=== PATIENT | male | born 1985 | race Two or more races ===

== ENCOUNTER 2021-02-21 19:50 | Emergency (ER) | payer SELFPAY ==
[2021-02-21] MEDS ORDERED: Ketorolac 15 MG/ML SDV IM ONE (20:14)
--- NOTE | 2021-02-21 20:57 | CR ---
INDICATION: Injury. Pain. TECHNIQUE: Three views left foot. Three views left ankle. FINDINGS: Mildly displaced minimally comminuted oblique acute fracture involving the distal diaphysis and neck of the left 2nd metacarpal. Moderate soft tissue swelling left forefoot and midfoot greatest dorsally in the forefoot. Mild hallux valgus deformity. Mild soft tissue swelling left ankle anteriorly and laterally. No acute fracture or dislocation in left ankle. Remainder negative. Dictated by Lake Harrell MD @ 02/21/2021 8:55:[address] Lake Harrell @ Feb 21 2021 8:55PM
--- NOTE | 2021-02-21 20:57 | CR ---
INDICATION: Injury. Pain. TECHNIQUE: Three views left foot. Three views left ankle. FINDINGS: Mildly displaced minimally comminuted oblique acute fracture involving the distal diaphysis and neck of the left 2nd metacarpal. Moderate soft tissue swelling left forefoot and midfoot greatest dorsally in the forefoot. Mild hallux valgus deformity. Mild soft tissue swelling left ankle anteriorly and laterally. No acute fracture or dislocation in left ankle. Remainder negative. Dictated by Lake Harrell MD @ 02/21/2021 8:55:[address] Lake Harrell @ Feb 21 2021 8:55PM
[2021-02-21] MEDS ORDERED: Diphtheria,Pertussis(Acell),Tetanus Vaccine 0.5 ML Syringe IM ONE (20:58)
--- NOTE | 2021-02-21 21:17 | EDM.PDOC ---
ED HPI GENERAL MEDICAL PROBLEM - General Chief Complaint: Lower Extremity Injury/Pain Stated Complaint: LFT FOOT BROKEN POSSIBLY Time Seen by Provider: 02/21/21 20:06 - History of Present Illness INITIAL COMMENTS - FREE TEXT/NARRATIVE: CHIEF COMPLAINT(S): Left foot injury HISTORY OF PRESENT ILLNESS: This is a 35-year-old man without any significant past medical history who comes to the emergency department with a chief compl aint of the left foot injury. The patient states that approximately 2 hours prior to arrival he and his coworker were moving a dresser and the dresser fell on top of his left foot. He states that after the dresser landed on his foot it was too painful to walk on it and they decided to come to the emergency department. He states that initially his pain was 5 out of 10 and since being here it is now 4 out of 10. He describes the pain as achy. He denies any radiation of the pain. He denies any other injuries. He states that there is no numbness, tingling, or weakness is just painful when he walks on it. He states that anytime he touches his foot it is exacerbated. He states that putting any weight on it exacerbates the pain. He denies any relieving factors. REVIEW OF SYSTEMS: Constitutional: Denies fever, chills. Cardiovascular: Denies chest pain Skin: Positive for abrasion to top of left foot MSK: Positive for left foot pain Neurological: Denies numbness, tingling, weakness PAST MEDICAL HISTORY: As per history of present illness and as reviewed below otherwise noncontributory. SURGICAL HISTORY: As per history of present illness and as reviewed below otherwise noncontributory. SOCIAL HISTORY: As per history of present illness and as reviewed below otherwise noncontributory. FAMILY HISTORY: As per history of present illness and as reviewed below otherwise noncontributory. EXAMINATION OF ORGAN SYSTEMS/BODY AREAS: Constitutional: Blood pressure is 143/78, heart rate 110, respiratory rate 18 with an oxygen saturation 97% on room air. Temperature 36.1 General: Overall well-appearing man who is in no acute distress Psychiatric: Appropriate mood and affect. Eyes: No scleral icterus or conjunctival erythema Cardiovascular: Regular, rate, and rhythm. No gallops, murmurs, or rubs. Bilateral upper extremity and lower extremity pulses symmetric and intact. Respiratory: Lungs clear to auscultation bilaterally. No wheezes, rales, or rhonchi. Musculoskeletal: The patient has full range of motion at the left ankle. There is some soft tissue swelling on the patient's top of his left foot. There is tenderness to palpation along the top of the foot entirely. No specific area. No obvious deformity. Patient can move all of his toes equally. Skin: There is an abrasion to the patient's top of his left foot Neurological: Alert, GCS 15 distal sensation is intact MEDICAL DECISION MAKING AND COURSE IN THE ED WITH INTERPRETATION/REVIEW OF DIAGNOSTIC STUDIES: This is a 35-year-old man and without any significant past medical history who comes to the emergency department with left foot injury with soft tissue swelling and tenderness on the top of the patient's left foot. At this time we will provide the patient with Toradol for pain relief. We will update the patient's tetanus. We will obtain an ankle and foot x-ray on the left and reevaluate after imaging. I do not believe any other labs or imaging are indicated. The radiological images were viewed by myself along with reading the report from the radiologist. Left ankle x-ray does not reveal any fracture or dislocation. Left foot x-ray reveals a mildly displaced minimally comminuted oblique acute fracture involving the distal diaphysis and neck of the left second metatarsal. There is moderate soft tissue swelling of the left forefoot and midfoot with a mild hallux valgus deformity. After imaging I did discuss results with the patient. I contacted [facility] in [place] and spoke with Dr. Sandhu who recommended a walking boot and nonweightbearing and follow-up with orthopedics within 1 to 3 days. I did discuss this with the patient he was amenable to this plan. He is to use Tylenol and Motrin for pain relief and to return for any new or worsening symptoms. He was amenable to discharge at this time and had no further questions DISPOSITION: The patient was discharged home in stable condition. The patient will follow up with orthopedics within 1 to 3 days CONDITION: Fair PROCEDURES: None FINAL IMPRESSION(S)/DIAGNOSES: 1. Acute minimally displaced comminuted oblique acute fracture of the distal diaphysis of the neck of the left second metatarsal DME: Left walking boot Indication: Second metatarsal fracture Benefit: Immobilization/nonweightbearing Duration: Until follow-up with orthopedics DME: Crutches Indication: Second metatarsal fracture Benefit: Nonweightbearing Duration: Until follow-up with orthopedics Lukasz Dickinson M.D. left foot Pain Score (Numeric/FACES): 5 - Related Data Allergies Allergy/AdvReac Type Severity Reaction Status Date / Time No Known Allergies Allergy Verified 02/21/21 20:06 Home Meds: Home Meds . [No Known Home Meds] 02/21/21 [History] Past Medical History - Past Health History Medical/Surgical History: Denies Medical/Surgical History Review of Systems - Review of Systems Review Of Systems: See Below ED EXAM, GENERAL - Physical Exam Exam: See Below Course - Vital Signs Last Recorded V/S: Last Vital Signs Temp 36.1 C 02/21/21 20:07 Pulse 67 02/21/21 21:46 Resp 18 02/21/21 21:46 BP 128/78 02/21/21 21:46 Pulse Ox 98 02/21/21 21:46 - Orders/Labs/Meds Orders: Active Orders 24 hr Category Date Time Status DME for Discharge [COMM] Stat Oth 02/21/21 21:14 Ordered DME for Discharge [COMM] Stat Oth 02/21/21 21:15 Ordered Meds: Medications Discontinued Medications Generic Name Dose Route Start Last Admin Trade Name Freq PRN Reason Stop Dose Admin Diphtheria/Tetanus/Acell Pertussis 0.5 ml 02/21/21 20:58 02/21/21 21:11 Diphtheria,Pertussis(Acell),Tetanus Vaccine 0.5 Ml Syringe IM 02/21/21 20:59 Not Given .ONCE ONE Ketorolac Tromethamine 15 mg 02/21/21 20:14 02/21/21 20:28 Ketorolac 15 Mg/Ml Sdv IM 02/21/21 20:15 15 mg ONETIME ONE Administration Departure - Departure Time of Disposition: 21:17 Disposition: Home, Self-Care 01 Condition: Fair Clinical Impression: Metatarsal bone fracture Qualifiers: Encounter type: initial encounter Metatarsal bone: second Fracture type: closed Fracture alignment: displaced Laterality: left Qualified Code(s): S92.322A - Displaced fracture of second metatarsal bone, left foot, initial encounter for closed fracture - Discharge Information *PRESCRIPTION DRUG MONITORING PROGRAM REVIEWED*: No *COPY OF PRESCRIPTION DRUG MONITORING REPORT IN PATIENT NATY: No Instructions: Pain Medicine Instructions, [id number], Metatarsal Fracture Referrals: PCP,None [Primary Care Provider] - Forms: ED Department Discharge Additional Instructions: You were evaluated today on an emergent basis. At this time you did have a fracture of your second toe in your midfoot. At this time I did contact orthopedics at [facility] in [place] as we do not have surgical capability here in [place]. They did recommend a walking boot and crutches and to not put any pressure on the left lower extremity. It is extremely important that you follow-up within 3 to 5 days. I would recommend contacting them tomorrow morning for a appointment. Numbers provided below. I do recommend that use Tylenol and Motrin for pain relief and to keep the left lower extremity elevated while you are sitting. Please use: Tylenol 500-1000mg every 6 hours (DO NOT TAKE MORE THAN 4000mg in 1 day) Ibuprofen 400mg every 6 hours (Take with food as it can cause ulcers, GI upset) Example schedule: 8:00 AM (Tylenol 500-1000mg) 11:00 AM (Ibuprofen 400mg) 2:00 PM (Tylenol 500-1000mg) 5:00 PM (Ibuprofen 400mg) Ice the area 20 minutes 4 times per day [facility] - Dr. Edson [place], [place] [phone] The patient is informed of any results of their evaluation and diagnostic workup and all questions are answered. They are given discharge instructions and return precautions. The patient is stable for discharge. The patient states they understand and agree with the plan and that they will return if their symptoms get worse or if they have any new concerns. The following information is given to patients seen in the emergency department who are being discharged to home. This information is to outline your options for follow-up care. We provide all patients seen in our emergency department with a follow-up referral. The need for follow-up, as well as the timing and circumstances, are variable depending upon the specifics of your emergency department visit. If you don't have a primary care physician on staff, we will provide you with a referral. We always advise you to contact your personal physician following an emergency department visit to inform them of the circumstance of the visit and for follow-up with them and/or the need for any referrals to a consulting specialist. The emergency department will also refer you to a specialist when appropriate. This referral assures that you have the opportunity for follow-up care with a specialist. All of these measure are taken in an effort to provide you with optimal care, which includes your follow-up. Under all circumstances we always encourage you to contact your private physician who remains a resource for coordinating your care. When calling for follow-up care, please make the office aware that this follow-up is from your recent emergency room visit. If for any reason you are refused follow-up, please contact the [facility] Emergency Department at and asked to speak to the emergency department charge nurse. Sepsis Event Note (ED) - Evaluation Sepsis Screening Result: No Definite Risk - Focused Exam Vital Signs: Vital Signs Temp Pulse Resp BP Pulse Ox 02/21/21 21:46 67 18 128/78 98 02/21/21 20:07 36.1 C 110 H 18 143/78 H 97 - My Orders Last 24 Hours: My Active Orders 02/21/21 21:14 DME for Discharge [COMM] Stat 02/21/21 21:15 DME for Discharge [COMM] Stat - Assessment/Plan Last 24 Hours: My Active Orders 02/21/21 21:14 DME for Discharge [COMM] Stat 02/21/21 21:15 DME for Discharge [COMM] Stat
== END 2021-02-21 21:49 | disposition home or self-care (01) ==
LOC: MW.ED 19:50
DX: S92.322A Displaced fracture of second metatarsal bone, left foot, initial encounter for closed fracture (principal); W20.8XXA Other cause of strike by thrown, projected or falling object, initial encounter
CPT/HCPCS: 73610; 73630; 96372; 99283; J1885